=== PATIENT | male | born 1935 | race Caucasian/White ===

== ENCOUNTER 2020-01-30 11:25 | Inpatient (IN) | payer MEDICARE, OTHER ==
[~2020-01-30] VITALS: Ht 177.8 cm; Wt 60.1 kg
[2020-01-30 14:20] LABS: Basophils # (auto) 0.1 10 ^3/uL (0-0.2); Basophils % (auto) 0.5 % (0.0-2.0); Eosinophils # (auto) 0 10 ^3/uL (0-0.8); Eosinophils % (auto) 0.2 % (0.0-7.0); Hematocrit 42.3 % (41.0-53.0); Hemoglobin 13.7 g/dL (13.5-17.5); Lymphocytes # (auto) 1.1 10 ^3/uL (0.4-5.4); Lymphocytes % (auto) 8.3 % (10.0-50.0); Mean Corpuscular Hemoglobin 27.9 pg (28.0-32.0); Mean Corpuscular Hgb Conc. 32.4 g/dL (32.0-36.0); Mean Corpuscular Volume 86.1 fL (80.0-100.0); Monocytes # (auto) 0.7 10 ^3/uL (0-1.3); Monocytes % (auto) 5.5 % (0.0-12.0); Neutrophils % (auto) 85.5 % (37.0-80.0); Platelet Count (auto) 191 10^3/uL (140-450); Red Blood Cells 4.91 10^6/uL (4.5-5.90); White Blood Cell 12.9 10^3/uL (4.4-10.8)
[2020-01-30 14:35] LABS: INR 1.06 (0.9-1.15); Partial Thromboplastin Time 28.7 sec (23.64-32.05)
[2020-01-30 14:44] LABS: Albumin 3.5 g/dL (3.4-5.0); Anion Gap 11 (5-15); Blood Urea Nitrogen 16 mg/dL (7-18); Calcium 8.7 mg/dL (8.5-10.1); Carbon Dioxide 23 mmol/L (21-32); Chloride 109 mmol/L (98-107); Glucose 98 mg/dL (74-106); Potassium 3.6 mmol/L (3.5-5.1); Sodium 143 mmol/L (136-145)
[2020-01-30 14:51] LABS: Alanine Aminotransferase 21 U/L (16-61); Alkaline Phosphatase 86 U/L (45-117); Aspartate Aminotransferase 21 U/L (15-37); BUN/Creatinine Ratio 13.2; Bilirubin, Total 0.6 mg/dL (0.2-1.0); GFR African American 73 mL/min; GFR Non-African American 61 mL/min; Total Protein 6.9 g/dL (6.4-8.2)
[2020-01-30] MEDS ORDERED: NITROGLYCERIN 0.4 MG SL TAB SL PRN (15:45)
[2020-01-30] MEDS ORDERED: MORPHINE SULF INJ 2 MG/ML SYRINGE 1ML IV PRN ×2 (15:45)
[2020-01-30] MEDS ORDERED: hydrALAZINE HCL 20 MG/ML VL IV PRN (15:45)
[2020-01-30] MEDS ORDERED: ACETAMINOPHEN 500 MG TAB PO PRN (15:45)
[2020-01-30] MEDS ORDERED: ONDANSETRON HCL 4 MG/2 ML VIAL IV PRN (15:45)
[2020-01-30] MEDS ORDERED: HYDROcodone-ACET 5/325MG TAB PO PRN (15:45)
[2020-01-30 17:19] LABS: Urine WBC None Seen /hpf (0 - 3)
[2020-01-30 17:28] LABS: Urine Bacteria NONE SEEN /hpf (None Seen); Urine Blood Negative /uL (Negative); Urine Specific Gravity 1.015 (1.001-1.035)
[2020-01-30 17:30] VITALS: BP 155/71
[2020-01-30 17:36] VITALS: BP 155/71
[2020-01-30 22:00] VITALS: BP 125/61
[2020-01-31] VITALS (11 sets, daily range): BP systolic 112–154; BP diastolic 58–76
[2020-01-31] MEDS: FAMOTIDINE 20 MG TAB PO SCH (10:00)
[2020-01-31] MEDS ORDERED: CLINDAMYCIN 600MG IV 50 ML IV ONE (10:47)
[2020-01-31] MEDS ORDERED: fentaNYL CITRATE 100 MCG/2 ML VL ONE (10:55)
[2020-01-31] MEDS ORDERED: MIDAZOLAM HCL 1MG/1ML-2 ML VIAL ONE (10:56)
[2020-01-31] MEDS ORDERED: PROPOFOL 10 MG/ML 20 ML IV ONE (10:58)
[2020-01-31] MEDS ORDERED: DexAMETHasone SOD PHOS 10MG/1ML VIAL INJ ONE (10:58)
[2020-01-31] MEDS ORDERED: BUPIVACAINE 0.25% INJ 50ML VIAL ONE (11:17)
[2020-01-31] MEDS ORDERED: TETRACAINE 1% INJ 2 ML VIAL IJ ONE (11:18)
[2020-01-31] MEDS ORDERED: PHENYLEPHRINE HCL 10 MG/ML VL IV ONE (11:18)
[2020-01-31] MEDS ORDERED: MORPHINE SULF(PF) 0.5MG/ML 10ML VIAL ONE (11:19)
[2020-01-31] MEDS ORDERED: NALOXONE HCL 0.4 MG/ML VIAL IV PRN (14:00)
[2020-01-31] MEDS ORDERED: ePHEDrine SULFATE 50 MG/ML AMP IV PRN (14:00)
[2020-01-31] MEDS ORDERED: KETOROLAC TROMETH 15 mg/ml 1ML VL IV PRN (14:00)
[2020-01-31] MEDS ORDERED: LABETALOL HCL 5 MG/ML 4ML SYRINGE IV PRN (14:00)
[2020-01-31] MEDS ORDERED: DexAMETHasone SOD PHOS 10MG/1ML VIAL INJ IV PRN (14:00)
[2020-01-31] MEDS ORDERED: diphenhdrAMINE HCL 50 MG/1 ML VL IV PRN (14:00)
[2020-01-31] MEDS ORDERED: HYDROmorphone HCL 2 MG/ML VL IV PRN ×3 (14:00→16:15)
[2020-01-31] MEDS ORDERED: MORPHINE SULFATE 4 MG/ML SYR/VIAL IV PRN (14:00)
[2020-01-31] MEDS ORDERED: ONDANSETRON HCL 4 MG/2 ML VIAL IV PRN ×2 (14:00)
[2020-01-31] MEDS ORDERED: NALBUPHINE HCL 10 MG/1ml INJECTION SUBCUT ONE (14:00)
[2020-01-31] MEDS ORDERED: MIDAZOLAM HCL 1MG/1ML-2 ML VIAL IV PRN (14:00)
[2020-01-31] MEDS ORDERED: HYDROcodone-ACET 5/325MG TAB PO PRN (16:15)
[2020-01-31] MEDS ORDERED: ACETAMINOPHEN 325 MG TAB PO PRN (16:15)
[2020-01-31] MEDS: CLINDAMYCIN 600MG IV 50 ML IV SCH (21:48)
[2020-02-01] VITALS (17 sets, daily range): BP systolic 107–141; BP diastolic 52–111
[2020-02-01] MEDS: CLINDAMYCIN 600MG IV 50 ML IV SCH ×2 (05:37→13:59)
[2020-02-01 07:29] LABS: BUN/Creatinine Ratio 17.3; Calcium 8.5 mg/dL (8.5-10.1); Potassium 4.7 mmol/L (3.5-5.1)
[2020-02-01 08:46] LABS: Basophils # (auto) 0 10 ^3/uL (0-0.2); Basophils % (auto) 0.1 % (0.0-2.0); Eosinophils # (auto) 0 10 ^3/uL (0-0.8); Hematocrit 38.2 % (41.0-53.0); Hemoglobin 12.4 g/dL (13.5-17.5); Lymphocytes # (auto) 0.5 10 ^3/uL (0.4-5.4); Lymphocytes % (auto) 4.5 % (10.0-50.0); Mean Corpuscular Hemoglobin 27.8 pg (28.0-32.0); Mean Corpuscular Hgb Conc. 32.5 g/dL (32.0-36.0); Mean Corpuscular Volume 85.5 fL (80.0-100.0); Monocytes # (auto) 0.9 10 ^3/uL (0-1.3); Monocytes % (auto) 8.1 % (0.0-12.0); Neutrophils # (auto) 9.7 10 ^3/uL (1.6-8.6); Neutrophils % (auto) 87.3 % (37.0-80.0); Platelet Count (auto) 231 10^3/uL (140-450); Red Blood Cells 4.47 10^6/uL (4.5-5.90); Red Cell Distribution Width 16.2 % (11.8-14.3); White Blood Cell 11.1 10^3/uL (4.4-10.8)
[2020-02-01] MEDS: FAMOTIDINE 20 MG TAB PO SCH (09:06)
== END 2020-02-01 16:28 | disposition home or self-care (01) | DRG 494 ==
LOC: ER 11:25 → EDBD 11:25 → TELE 11:26 → TELE-CENTR 17:39
PROVIDERS: ADMIT Nurse Practitioner Acute Care; ATTEND Internal Medicine
PROC: 0QSJXZZ Reposition Right Fibula, External Approach (ICD-10-PCS; 2020-01-31)
PROC: 0SSF0ZZ Reposition Right Ankle Joint, Open Approach (ICD-10-PCS; 2020-01-31)
PROC: 0QSG04Z Reposition Right Tibia with Internal Fixation Device, Open Approach (ICD-10-PCS; principal; 2020-01-31 11:15)
DX: S82.391A Other fracture of lower end of right tibia, initial encounter for closed fracture (principal); S82.61XA Displaced fracture of lateral malleolus of right fibula, initial encounter for closed fracture; S82.831A Other fracture of upper and lower end of right fibula, initial encounter for closed fracture; D72.829 Elevated white blood cell count, unspecified; I44.0 Atrioventricular block, first degree; I44.7 Left bundle-branch block, unspecified; I12.9 Hypertensive chronic kidney disease with stage 1 through stage 4 chronic kidney disease, or unspecified chronic kidney disease; N18.2 Chronic kidney disease, stage 2 (mild); Z88.0 Allergy status to penicillin; W18.39XA Other fall on same level, initial encounter; Y93.89 Activity, other specified; Y92.89 Other specified places as the place of occurrence of the external cause; Y99.8 Other external cause status
CPT/HCPCS: 36415; 71045; 73590; 73610; 80048; 80053; 81001; 83735; 84484; 85025; 85610; 85730; 86850; 86900; 86901; 93005; 93306; 94762; G0378; J1100; J2250; J2405; J2704; J3490

== ENCOUNTER 2021-02-17 08:35 | Inpatient (IN) | payer MEDICARE, OTHER ==
[~2021-02-17] VITALS: Ht 175.3 cm; Wt 54.6 kg
[2021-02-17] MEDS ORDERED: levoFLOXacin 500MG 100 ML IV ONE (09:30)
[2021-02-17] MEDS ORDERED: SODIUM CHLORIDE 0.9% 1,000 ML IV ONE ×2 (09:30)
[2021-02-17 10:37] LABS: Basophils # (auto) 0 10 ^3/uL (0-0.2); Basophils % (auto) 0.2 % (0.0-2.0); Eosinophils # (auto) 0 10 ^3/uL (0-0.8); Lymphocytes # (auto) 1.1 10 ^3/uL (0.4-5.4); Mean Corpuscular Hemoglobin 28.8 pg (28.0-32.0); Monocytes # (auto) 1.4 10 ^3/uL (0-1.3); Platelet Count (auto) 272 10^3/uL (140-450)
[2021-02-17 10:38] LABS: Hematocrit 52.9 % (41.0-53.0); Hemoglobin 17.4 g/dL (13.5-17.5); Lymphocytes % (auto) 6.4 % (10.0-50.0); Mean Corpuscular Volume 87.5 fL (80.0-100.0); Monocytes % (auto) 7.9 % (0.0-12.0); Neutrophils # (auto) 15.1 10 ^3/uL (1.6-8.6); Neutrophils % (auto) 85.5 % (37.0-80.0); Red Blood Cells 6.04 10^6/uL (4.5-5.90); Red Cell Distribution Width 14.8 % (11.8-14.3); White Blood Cell 17.7 10^3/uL (4.4-10.8)
[2021-02-17 10:53] LABS: Lactic Acid w/Reflex 2.9 mmol/L (0.4-2.0)
[2021-02-17 11:02] LABS: Potassium 3.1 mmol/L (3.5-5.1); Sodium 143 mmol/L (136-145)
[2021-02-17 11:03] LABS: Alanine Aminotransferase 23 U/L (16-61); Albumin 3.6 g/dL (3.4-5.0); Alkaline Phosphatase 94 U/L (45-117); Anion Gap 10 (5-15); Aspartate Aminotransferase 17 U/L (15-37); BUN/Creatinine Ratio 19.5; Bilirubin, Total 2.2 mg/dL (0.2-1.0); Blood Urea Nitrogen 33 mg/dL (7-18); Calcium 8.9 mg/dL (8.5-10.1); Carbon Dioxide 33 mmol/L (21-32); Chloride 100 mmol/L (98-107); GFR African American 50 mL/min; GFR Non-African American 41 mL/min; Glucose 102 mg/dL (74-106); Magnesium 3.2 mg/dL (1.6-2.6)
[2021-02-17 11:34] LABS: Urine Bacteria NONE SEEN /hpf (None Seen); Urine Blood Negative /uL (Negative); Urine Hyaline Cast MANY /lpf (0 - 2); Urine Specific Gravity 1.019 (1.001-1.035); Urine WBC <1 /hpf (0 - 3)
[2021-02-17] MEDS ORDERED: NITROGLYCERIN 0.4 MG SL TAB SL PRN ×3 (12:15→15:00)
[2021-02-17] MEDS ORDERED: MORPHINE SULF INJ 2 MG/ML SYRINGE 1ML IV PRN ×3 (12:15→15:00)
[2021-02-17] MEDS ORDERED: ONDANSETRON HCL 4 MG/2 ML VIAL ONE (13:57)
[2021-02-17] MEDS: ONDANSETRON HCL 4 MG/2 ML VIAL IV PRN ×2 (14:03→21:31)
[2021-02-17] MEDS ORDERED: ALUM & MAG HYDROX-SIMETH LIQ(MAALOX) 30 ML PO PRN (15:00)
[2021-02-17] MEDS ORDERED: HYDROcodone-ACET 5/325MG TAB PO PRN (15:00)
[2021-02-17] MEDS ORDERED: POTASSIUM CHL 20MEQ/100ML 100 ML IV ONE (15:00)
[2021-02-17] MEDS ORDERED: ACETAMINOPHEN 325 MG TAB PO PRN (15:00)
[2021-02-17] MEDS ORDERED: hydrALAZINE HCL 20 MG/ML VL IV PRN (15:00)
[2021-02-17] MEDS ORDERED: ONDANSETRON HCL 4 MG/2 ML VIAL IV PRN (15:00)
[2021-02-17] MEDS ORDERED: ALBUTEROL SULF 2.5 MG/0.5ML(0.5%) NEB SOLN NEB ONE (15:00)
[2021-02-17] MEDS ORDERED: LORazepam 0.5 MG TAB PO PRN (15:00)
[2021-02-17] MEDS ORDERED: IPRATROPIUM BROM 0.5 MG/2.5ML INH SOL NEB ONE (15:00)
[2021-02-17] MEDS ORDERED: ALBUTEROL SULF 2.5 MG/0.5ML(0.5%) NEB SOLN NEB PRN (15:00)
[2021-02-17] MEDS ORDERED: methylPREDNISolone SOD SUCC 125 MG/2 ML VL IV ONE (15:00)
[2021-02-17] MEDS ORDERED: ATORVASTATIN 20 MG TAB PO ONE (15:00)
[2021-02-17] MEDS ORDERED: LACTATED RINGER'S 1,000 ML IV ONE (15:00)
[2021-02-17] MEDS ORDERED: DOCUSATE SOD 100 MG CAP PO PRN (15:00)
[2021-02-17] MEDS ORDERED: POTASSIUM CHL 20 Meq TABLET PO ONE (15:00)
[2021-02-17] MEDS ORDERED: IPRATROPIUM BROM 0.5 MG/2.5ML INH SOL NEB PRN (15:30)
[2021-02-17] MEDS: SOD CHL 0.9%/ KCL 20MEQ 1,000 ML IV SCH (15:53)
[2021-02-17 15:57] LABS: Cholesterol 222 mg/dL (< 200); HDL Cholesterol 41 mg/dL (40-59); LDL Cholesterol 162 mg/dL (< 100); Triglycerides 137 mg/dL (< 150)
[2021-02-17 16:30] VITALS: BP 135/60
[2021-02-17 16:55] LABS: Urine WBC None Seen /hpf (0 - 3)
[2021-02-17 17:17] LABS: Urine Bacteria NONE SEEN /hpf (None Seen); Urine Blood Negative /uL (Negative); Urine Specific Gravity 1.019 (1.001-1.035)
[2021-02-17 17:27] LABS: Alcohol, Urine < 3.0 mg/dL (0-10); Amphetamine Screen, Urine NEGATIVE (NEGATIVE); Barbiturate Scree,Urine NEGATIVE (NEGATIVE); Benzodiazephine Screen, Urine NEGATIVE (NEGATIVE); Cannabinoid Screen, Urine POSITIVE (NEGATIVE); Cocaine Screen, Urine NEGATIVE (NEGATIVE); Opiate Scree,Urine NEGATIVE (NEGATIVE); Phencyclidine Screen, Urine NEGATIVE (NEGATIVE)
[2021-02-17] MEDS ORDERED: IPRATROPIUM BROM 0.5 MG/2.5ML INH SOL NEB SCH (18:00)
[2021-02-17 18:40] VITALS: BP 139/86
[2021-02-17] MEDS: FUROSEMIDE 20 MG/2 ML VIAL IV SCH (18:57)
[2021-02-17] MEDS ORDERED: GABA300C10 PO (19:26)
[2021-02-17] MEDS ORDERED: ACYC1CAP23 PO (19:26)
[2021-02-17] MEDS ORDERED: BENA5TAB5 PO (19:27)
[2021-02-17] MEDS: AZTREONAM 1GM INJ 1 GM in D5W 5% 50 ML IV SCH (21:31)
[2021-02-17] MEDS: methylPREDNISolone SOD SUCC 40 MG/ML VL IV SCH (21:31)
[2021-02-17 21:47] VITALS: BP 120/91
[2021-02-18] MEDS: SOD CHL 0.9%/ KCL 20MEQ 1,000 ML IV SCH ×3 (01:55→13:49)
[2021-02-18] MEDS: ONDANSETRON HCL 4 MG/2 ML VIAL IV PRN ×2 (01:55→07:00)
[2021-02-18 05:00] VITALS: BP 141/96
[2021-02-18] MEDS: AZTREONAM 1GM INJ 1 GM in D5W 5% 50 ML IV SCH (05:10)
[2021-02-18] MEDS: FUROSEMIDE 20 MG/2 ML VIAL IV SCH (05:11)
[2021-02-18] MEDS: methylPREDNISolone SOD SUCC 40 MG/ML VL IV SCH (05:11)
[2021-02-18 06:12] LABS: Basophils # (auto) 0 10 ^3/uL (0-0.2); Basophils % (auto) 0.1 % (0.0-2.0); Eosinophils # (auto) 0 10 ^3/uL (0-0.8); Hematocrit 48.7 % (41.0-53.0); Hemoglobin 16.4 g/dL (13.5-17.5); Lymphocytes # (auto) 0.3 10 ^3/uL (0.4-5.4); Lymphocytes % (auto) 3.6 % (10.0-50.0); Mean Corpuscular Hemoglobin 29.7 pg (28.0-32.0); Mean Corpuscular Hgb Conc. 33.6 g/dL (32.0-36.0); Mean Corpuscular Volume 88.2 fL (80.0-100.0); Monocytes # (auto) 0.4 10 ^3/uL (0-1.3); Monocytes % (auto) 4.5 % (0.0-12.0); Neutrophils # (auto) 8.9 10 ^3/uL (1.6-8.6); Neutrophils % (auto) 91.8 % (37.0-80.0); Platelet Count (auto) 178 10^3/uL (140-450); Red Blood Cells 5.52 10^6/uL (4.5-5.90); Red Cell Distribution Width 14.5 % (11.8-14.3); White Blood Cell 9.7 10^3/uL (4.4-10.8)
[2021-02-18 06:32] LABS: INR 1.17 (0.9-1.15); Partial Thromboplastin Time 26.9 sec (23.0-31.2)
[2021-02-18 06:36] LABS: Potassium 3.6 mmol/L (3.5-5.1)
[2021-02-18 06:48] LABS: Albumin 3.3 g/dL (3.4-5.0); BUN/Creatinine Ratio 21.6; Bilirubin, Total 1.7 mg/dL (0.2-1.0); Calcium 8.2 mg/dL (8.5-10.1); Magnesium 2.8 mg/dL (1.6-2.6); Phosphorus 1.7 mg/dL (2.5-4.90); Total Protein 6.3 g/dL (6.4-8.2)
[2021-02-18 09:00] VITALS: BP 108/78
[2021-02-18] MEDS ORDERED: AZITHROMYCIN 500MG/ 250ML 250 ML IV SCH (10:00)
[2021-02-18] MEDS ORDERED: ENOXAPARIN SOD 40 MG/0.4 ML SYRINGE SC SCH (10:00)
[2021-02-18] MEDS ORDERED: ASPirin 81 mg TAB PO SCH (10:00)
[2021-02-18 13:00] VITALS: BP 130/75
[2021-02-18] MEDS ORDERED: PANTOPRAZOLE 40 MG/10 ML VIAL INJ IV ONE (13:00)
[2021-02-18] MEDS ORDERED: SODIUM PHOSPHATES 24 MEQ in SODIUM CHL 0.9% 100 ML IV ONE (13:15)
[2021-02-18 17:00] VITALS: BP 144/76
[2021-02-18] MEDS: ATORVASTATIN 20 MG TAB PO SCH (21:20)
[2021-02-18] MEDS: PANTOPRAZOLE 40 MG TAB PO SCH (21:20)
[2021-02-18 21:42] VITALS: BP 134/72
[2021-02-18] MEDS ORDERED: PANTOPRAZOLE 40 MG/10 ML VIAL INJ IV SCH (22:00)
[2021-02-19 04:25] VITALS: BP 113/53
[2021-02-19 05:33] LABS: Basophils # (auto) 0 10 ^3/uL (0-0.2); Basophils % (auto) 0.1 % (0.0-2.0); Eosinophils # (auto) 0 10 ^3/uL (0-0.8); Eosinophils % (auto) 0.1 % (0.0-7.0); Hematocrit 42.5 % (41.0-53.0); Lymphocytes % (auto) 6.1 % (10.0-50.0); Mean Corpuscular Hemoglobin 29.5 pg (28.0-32.0); Mean Corpuscular Volume 89.2 fL (80.0-100.0); Monocytes # (auto) 1.1 10 ^3/uL (0-1.3); Monocytes % (auto) 6.5 % (0.0-12.0); Neutrophils # (auto) 14.6 10 ^3/uL (1.6-8.6); Neutrophils % (auto) 87.2 % (37.0-80.0); Platelet Count (auto) 198 10^3/uL (140-450); Red Blood Cells 4.76 10^6/uL (4.5-5.90); Red Cell Distribution Width 14.9 % (11.8-14.3); White Blood Cell 16.7 10^3/uL (4.4-10.8)
[2021-02-19 05:52] LABS: Albumin 2.7 g/dL (3.4-5.0); Calcium 7.9 mg/dL (8.5-10.1); Potassium 4.6 mmol/L (3.5-5.1)
[2021-02-19 05:55] LABS: BUN/Creatinine Ratio 24.4; Bilirubin, Total 1.1 mg/dL (0.2-1.0); Total Protein 5.5 g/dL (6.4-8.2)
[2021-02-19] MEDS: SOD CHL 0.9%/ KCL 20MEQ 1,000 ML IV SCH (07:19)
[2021-02-19 07:56] VITALS: BP 147/74
[2021-02-19] MEDS ORDERED: ENOXAPARIN SOD 30 MG/0.3 ML SYRINGE SC SCH (10:00)
[2021-02-19] MEDS: ENOXAPARIN SOD 40 MG/0.4 ML SYRINGE SC SCH (10:00)
[2021-02-19] MEDS: PANTOPRAZOLE 40 MG TAB PO SCH ×2 (10:04→22:47)
[2021-02-19 12:11] VITALS: BP 112/53
[2021-02-19] MEDS: SUCRALFATE 1 GM/10 ML ORAL SUSP PO SCH ×3 (14:25→17:35)
[2021-02-19] MEDS: SODIUM CHLORIDE 0.9% 1,000 ML IV SCH (14:51)
[2021-02-19 16:38] VITALS: BP 120/64
[2021-02-19 21:35] VITALS: BP 132/69
[2021-02-19] MEDS: ATORVASTATIN 20 MG TAB PO SCH (22:47)
[2021-02-20 04:44] VITALS: BP 127/66
[2021-02-20 06:13] LABS: Basophils # (auto) 0 10 ^3/uL (0-0.2); Eosinophils # (auto) 0 10 ^3/uL (0-0.8); Eosinophils % (auto) 0.3 % (0.0-7.0); Hematocrit 44.6 % (41.0-53.0); Hemoglobin 14.6 g/dL (13.5-17.5); Lymphocytes # (auto) 1.6 10 ^3/uL (0.4-5.4); Lymphocytes % (auto) 13.8 % (10.0-50.0); Mean Corpuscular Hemoglobin 29.4 pg (28.0-32.0); Mean Corpuscular Hgb Conc. 32.7 g/dL (32.0-36.0); Mean Corpuscular Volume 90.1 fL (80.0-100.0); Monocytes # (auto) 0.7 10 ^3/uL (0-1.3); Neutrophils # (auto) 9.1 10 ^3/uL (1.6-8.6); Neutrophils % (auto) 79.9 % (37.0-80.0); Platelet Count (auto) 192 10^3/uL (140-450); Red Blood Cells 4.95 10^6/uL (4.5-5.90); Red Cell Distribution Width 15.7 % (11.8-14.3); White Blood Cell 11.4 10^3/uL (4.4-10.8)
[2021-02-20] MEDS: SUCRALFATE 1 GM/10 ML ORAL SUSP PO SCH ×4 (06:19→21:27)
[2021-02-20 06:29] LABS: INR 1.08 (0.9-1.15)
[2021-02-20 06:46] LABS: Albumin 2.9 g/dL (3.4-5.0); Calcium 8.1 mg/dL (8.5-10.1); Magnesium 2.9 mg/dL (1.6-2.6); Potassium 4.3 mmol/L (3.5-5.1)
[2021-02-20 06:50] LABS: BUN/Creatinine Ratio 26.4; Bilirubin, Total 1.5 mg/dL (0.2-1.0); Phosphorus 2.5 mg/dL (2.5-4.90); Total Protein 5.6 g/dL (6.4-8.2)
[2021-02-20 08:43] VITALS: BP 150/73
[2021-02-20] MEDS: SODIUM CHLORIDE 0.9% 1,000 ML IV SCH (09:35)
[2021-02-20] MEDS: ENOXAPARIN SOD 40 MG/0.4 ML SYRINGE SC SCH (10:00)
[2021-02-20] MEDS: PANTOPRAZOLE 40 MG TAB PO SCH ×2 (10:00→21:27)
[2021-02-20] MEDS ORDERED: fentaNYL CITRATE 100 MCG/2 ML VL ONE (10:15)
[2021-02-20] MEDS ORDERED: MIDAZOLAM HCL 1MG/1ML-2 ML VIAL ONE (10:15)
[2021-02-20] MEDS ORDERED: PROPOFOL 10 MG/ML 20 ML IV ONE (10:27)
[2021-02-20] MEDS ORDERED: ONDANSETRON HCL 4 MG/2 ML VIAL IV PRN (11:00)
[2021-02-20 13:17] VITALS: BP 135/64
[2021-02-20 16:28] VITALS: BP_SYST 135; BP_SYST 141; BP_DIAS 64; BP_DIAS 65
[2021-02-20 21:21] VITALS: BP 132/65
[2021-02-20] MEDS: ATORVASTATIN 20 MG TAB PO SCH (21:27)
[2021-02-21 04:55] VITALS: BP 126/89
[2021-02-21 05:59] LABS: Basophils # (auto) 0 10 ^3/uL (0-0.2); Basophils % (auto) 0.1 % (0.0-2.0); Eosinophils # (auto) 0.1 10 ^3/uL (0-0.8); Eosinophils % (auto) 0.7 % (0.0-7.0); Hematocrit 39.1 % (41.0-53.0); Lymphocytes # (auto) 1.5 10 ^3/uL (0.4-5.4); Lymphocytes % (auto) 17.7 % (10.0-50.0); Mean Corpuscular Hemoglobin 29.7 pg (28.0-32.0); Mean Corpuscular Hgb Conc. 33.4 g/dL (32.0-36.0); Mean Corpuscular Volume 88.9 fL (80.0-100.0); Monocytes # (auto) 0.5 10 ^3/uL (0-1.3); Monocytes % (auto) 5.8 % (0.0-12.0); Neutrophils # (auto) 6.6 10 ^3/uL (1.6-8.6); Neutrophils % (auto) 75.7 % (37.0-80.0); Platelet Count (auto) 173 10^3/uL (140-450); Red Blood Cells 4.39 10^6/uL (4.5-5.90); White Blood Cell 8.7 10^3/uL (4.4-10.8)
[2021-02-21] MEDS: SUCRALFATE 1 GM/10 ML ORAL SUSP PO SCH ×2 (06:01→11:22)
[2021-02-21] MEDS: SODIUM CHLORIDE 0.9% 1,000 ML IV SCH (06:01)
[2021-02-21 06:12] LABS: Potassium 3.9 mmol/L (3.5-5.1)
[2021-02-21 06:16] LABS: Albumin 2.5 g/dL (3.4-5.0); BUN/Creatinine Ratio 27.9; Bilirubin, Total 1.7 mg/dL (0.2-1.0); Calcium 7.6 mg/dL (8.5-10.1); Magnesium 2.6 mg/dL (1.6-2.6); Total Protein 4.7 g/dL (6.4-8.2)
[2021-02-21 09:00] VITALS: BP 160/70
[2021-02-21] MEDS: PANTOPRAZOLE 40 MG TAB PO SCH (09:33)
[2021-02-21] MEDS: ENOXAPARIN SOD 40 MG/0.4 ML SYRINGE SC SCH (09:33)
[2021-02-21 13:00] VITALS: BP 146/72
[2021-02-21] MEDS ORDERED: PANT40TA2 PO (13:30)
[2021-02-21] MEDS ORDERED: SUCR1TAB22 PO (13:30)
[2021-02-21] MEDS ORDERED: ATOR20TA PO (13:35)
[2021-02-21 15:03] VITALS: BP 146/72
[2021-02-21 17:00] VITALS: BP 131/86
== END 2021-02-21 16:36 | disposition home or self-care (01) | DRG 383 ==
LOC: EDBD 08:35 → ER 08:35 → TELE 12:02 → TELE-WESTW 18:14
PROVIDERS: ADMIT Hospitalist; ATTEND Internal Medicine
PROC: 0DB58ZX Excision of Esophagus, Via Natural or Artificial Opening Endoscopic, Diagnostic (ICD-10-PCS; 2021-02-20)
PROC: 0DB98ZX Excision of Duodenum, Via Natural or Artificial Opening Endoscopic, Diagnostic (ICD-10-PCS; principal; 2021-02-20 10:12)
DX: K26.9 Duodenal ulcer, unspecified as acute or chronic, without hemorrhage or perforation (principal); J18.9 Pneumonia, unspecified organism; N17.0 Acute kidney failure with tubular necrosis; J96.21 Acute and chronic respiratory failure with hypoxia; J44.1 Chronic obstructive pulmonary disease with (acute) exacerbation; R65.10 Systemic inflammatory response syndrome (SIRS) of non-infectious origin without acute organ dysfunction; I13.0 Hypertensive heart and chronic kidney disease with heart failure and stage 1 through stage 4 chronic kidney disease, or unspecified chronic kidney disease; J44.0 Chronic obstructive pulmonary disease with (acute) lower respiratory infection; I50.32 Chronic diastolic (congestive) heart failure; I95.9 Hypotension, unspecified; K29.80 Duodenitis without bleeding; Z20.822 Contact with and (suspected) exposure to COVID-19; E87.6 Hypokalemia; I44.7 Left bundle-branch block, unspecified; E86.0 Dehydration; J20.9 Acute bronchitis, unspecified; N18.31 Chronic kidney disease, stage 3a; M62.84 Sarcopenia; D75.1 Secondary polycythemia; K21.9 Gastro-esophageal reflux disease without esophagitis; K29.70 Gastritis, unspecified, without bleeding; E78.5 Hyperlipidemia, unspecified; K82.8 Other specified diseases of gallbladder; F12.90 Cannabis use, unspecified, uncomplicated; K21.00 Gastro-esophageal reflux disease with esophagitis, without bleeding; K76.0 Fatty (change of) liver, not elsewhere classified; Z87.891 Personal history of nicotine dependence; Z79.899 Other long term (current) drug therapy; Z88.0 Allergy status to penicillin; Z79.891 Long term (current) use of opiate analgesic; Z79.01 Long term (current) use of anticoagulants
CPT/HCPCS: 36415; 36600; 43239; 70450; 71045; 76705; 78226; 80053; 80061; 80307; 81001; 82306; 82805; 83036; 83605; 83735; 83880; 84100; 84443; 84484; 85025; 85610; 85730; 87040; 87086; 87426; 93005; 93306; 94003; 96361; 96365; C9113; G0378; J1956; J2250; J2405; J2704; J3480; J7060

== ENCOUNTER 2022-04-06 08:29 | Inpatient (IN) | payer MEDICARE, OTHER ==
[~2022-04-06] VITALS: Ht 165.1 cm; Wt 58.7 kg
[~2022-04-06 08:29] MED LIST: ACYC1CAP23 PO; ATOR20TA PO; BENA5TAB9 PO; GABA300C10 PO; PANT40TA2 PO; SUCR1TAB22 PO
[2022-04-06] MEDS ORDERED: SODIUM CHLORIDE 0.9% 1,000 ML IV ONE (11:00)
[2022-04-06 11:50] LABS: Basophils # (auto) 0.1 10 ^3/uL (0-0.2); Basophils % (auto) 0.3 % (0.0-2.0); Eosinophils # (auto) 0 10 ^3/uL (0-0.8); Eosinophils % (auto) 0.1 % (0.0-7.0); Hematocrit 37.2 % (41.0-53.0); Hemoglobin 12.2 g/dL (13.5-17.5); Lymphocytes # (auto) 0.8 10 ^3/uL (0.4-5.4); Lymphocytes % (auto) 4.2 % (10.0-50.0); Mean Corpuscular Hemoglobin 26.9 pg (28.0-32.0); Mean Corpuscular Hgb Conc. 32.9 g/dL (32.0-36.0); Mean Corpuscular Volume 81.8 fL (80.0-100.0); Monocytes # (auto) 0.7 10 ^3/uL (0-1.3); Monocytes % (auto) 4.2 % (0.0-12.0); Neutrophils # (auto) 16.3 10 ^3/uL (1.6-8.6); Neutrophils % (auto) 91.2 % (37.0-80.0); Red Blood Cells 4.55 10^6/uL (4.5-5.90); Red Cell Distribution Width 15.7 % (11.8-14.3); White Blood Cell 17.8 10^3/uL (4.4-10.8)
[2022-04-06 11:56] LABS: INR 1.08 (0.9-1.15); Partial Thromboplastin Time 26.5 sec (23.6-33.0)
[2022-04-06 11:59] LABS: Albumin 3.6 g/dL (3.4-5.0); BUN/Creatinine Ratio 17.1; Calcium 8.9 mg/dL (8.5-10.1); Potassium 4.2 mmol/L (3.5-5.1)
[2022-04-06 12:02] LABS: Bilirubin, Total 0.6 mg/dL (0.2-1.0); Total Protein 6.6 g/dL (6.4-8.2)
[2022-04-06 12:07] LABS: Urine Bacteria NONE SEEN /hpf (None Seen); Urine Blood TRACE /uL (Negative); Urine Specific Gravity 1.014 (1.001-1.035); Urine WBC <1 /hpf (0 - 3)
[2022-04-06] MEDS ORDERED: BACITRACIN TOP OINT 1 UD PKG TOP ONE (13:30)
[2022-04-06] MEDS ORDERED: levoFLOXacin 500MG 100 ML IV ONE (14:15)
[2022-04-06] MEDS ORDERED: hydrALAZINE HCL 20 MG/ML VL IV PRN (15:15)
[2022-04-06] MEDS: MORPHINE SULFATE INJ 2 MG/ml SYRG IV PRN (23:45)
[2022-04-07] VITALS (8 sets, daily range): BP systolic 125–156; BP diastolic 60–70
[2022-04-07 04:39] LABS: Basophils # (auto) 0.1 10 ^3/uL (0-0.2); Basophils % (auto) 0.6 % (0.0-2.0); Eosinophils # (auto) 0.2 10 ^3/uL (0-0.8); Eosinophils % (auto) 1.7 % (0.0-7.0); Hematocrit 37.4 % (41.0-53.0); Hemoglobin 12.6 g/dL (13.5-17.5); Lymphocytes % (auto) 10.7 % (10.0-50.0); Mean Corpuscular Hemoglobin 27.9 pg (28.0-32.0); Mean Corpuscular Hgb Conc. 33.7 g/dL (32.0-36.0); Mean Corpuscular Volume 82.9 fL (80.0-100.0); Monocytes # (auto) 0.7 10 ^3/uL (0-1.3); Monocytes % (auto) 7.8 % (0.0-12.0); Neutrophils # (auto) 7.4 10 ^3/uL (1.6-8.6); Neutrophils % (auto) 79.2 % (37.0-80.0); Red Blood Cells 4.51 10^6/uL (4.5-5.90); Red Cell Distribution Width 16.1 % (11.8-14.3); White Blood Cell 9.3 10^3/uL (4.4-10.8)
[2022-04-07 05:00] LABS: Calcium 8.3 mg/dL (8.5-10.1); Potassium 4.1 mmol/L (3.5-5.1)
[2022-04-07 05:04] LABS: BUN/Creatinine Ratio 13.4; Bilirubin, Total 1.3 mg/dL (0.2-1.0); Total Protein 6.1 g/dL (6.4-8.2)
[2022-04-07] MEDS: ENOXAPARIN SOD 30 MG/0.3 ML SYRINGE SC SCH (09:08)
[2022-04-07] MEDS: levoFLOXacin 250MG 50 ML IV SCH (09:08)
[2022-04-07] MEDS: MORPHINE SULFATE INJ 2 MG/ml SYRG IV PRN (09:10)
[2022-04-08 05:00] VITALS: BP 102/66
[2022-04-08 06:44] LABS: Basophils # (auto) 0 10 ^3/uL (0-0.2); Basophils % (auto) 0.3 % (0.0-2.0); Eosinophils # (auto) 0.1 10 ^3/uL (0-0.8); Hematocrit 36.7 % (41.0-53.0); Lymphocytes # (auto) 0.8 10 ^3/uL (0.4-5.4); Lymphocytes % (auto) 8.6 % (10.0-50.0); Mean Corpuscular Hemoglobin 27.2 pg (28.0-32.0); Mean Corpuscular Hgb Conc. 32.8 g/dL (32.0-36.0); Mean Corpuscular Volume 82.7 fL (80.0-100.0); Monocytes % (auto) 10.2 % (0.0-12.0); Neutrophils # (auto) 7.6 10 ^3/uL (1.6-8.6); Neutrophils % (auto) 79.9 % (37.0-80.0); Red Blood Cells 4.43 10^6/uL (4.5-5.90); Red Cell Distribution Width 15.6 % (11.8-14.3); White Blood Cell 9.5 10^3/uL (4.4-10.8)
[2022-04-08 06:57] LABS: BUN/Creatinine Ratio 15.4; Calcium 8.6 mg/dL (8.5-10.1); Magnesium 2.7 mg/dL (1.6-2.6); Potassium 4.3 mmol/L (3.5-5.1)
[2022-04-08 08:00] VITALS: BP 150/78
[2022-04-08 09:00] VITALS: BP 146/57
[2022-04-08] MEDS: ENOXAPARIN SOD 30 MG/0.3 ML SYRINGE SC SCH (09:16)
[2022-04-08] MEDS: levoFLOXacin 250MG 50 ML IV SCH (09:16)
[2022-04-08] MEDS: MORPHINE SULFATE INJ 2 MG/ml SYRG IV PRN (11:30)
[2022-04-08 13:00] VITALS: BP 116/52
[2022-04-08 17:00] VITALS: BP 155/59
[2022-04-08] MEDS ORDERED: ERGOCALCIFEROL 50,000 UNIT(1.25MG) CAP PO SCH (17:45)
[2022-04-08 22:00] VITALS: BP 112/56
[2022-04-09 05:00] VITALS: BP 122/62
[2022-04-09 05:58] LABS: Basophils # (auto) 0 10 ^3/uL (0-0.2); Basophils % (auto) 0.4 % (0.0-2.0); Eosinophils # (auto) 0.2 10 ^3/uL (0-0.8); Eosinophils % (auto) 2.3 % (0.0-7.0); Hematocrit 34.3 % (41.0-53.0); Hemoglobin 11.3 g/dL (13.5-17.5); Lymphocytes # (auto) 0.8 10 ^3/uL (0.4-5.4); Lymphocytes % (auto) 10.3 % (10.0-50.0); Mean Corpuscular Hemoglobin 27.3 pg (28.0-32.0); Mean Corpuscular Hgb Conc. 32.9 g/dL (32.0-36.0); Mean Corpuscular Volume 82.8 fL (80.0-100.0); Monocytes # (auto) 0.8 10 ^3/uL (0-1.3); Monocytes % (auto) 10.1 % (0.0-12.0); Neutrophils # (auto) 6.3 10 ^3/uL (1.6-8.6); Neutrophils % (auto) 76.9 % (37.0-80.0); Red Blood Cells 4.15 10^6/uL (4.5-5.90); Red Cell Distribution Width 15.8 % (11.8-14.3); White Blood Cell 8.2 10^3/uL (4.4-10.8)
[2022-04-09 06:17] LABS: Potassium 3.9 mmol/L (3.5-5.1)
[2022-04-09 06:18] LABS: BUN/Creatinine Ratio 25.3
[2022-04-09 08:38] VITALS: BP 134/60
[2022-04-09] MEDS: levoFLOXacin 250MG 50 ML IV SCH (09:27)
[2022-04-09] MEDS: ENOXAPARIN SOD 40 MG/0.4 ML SYRINGE SC SCH (09:28)
[2022-04-09] MEDS: MORPHINE SULFATE INJ 2 MG/ml SYRG IV PRN ×2 (10:00→13:48)
[2022-04-09 12:53] VITALS: BP 123/56
[2022-04-09] MEDS ORDERED: POLYETHYLENE GLYCOL 17 GM PWDR PO PRN (14:00)
[2022-04-09 16:37] VITALS: BP 139/66
[2022-04-09 22:00] VITALS: BP 140/75
[2022-04-10 05:00] VITALS: BP 144/64
[2022-04-10 09:07] VITALS: BP 123/69
[2022-04-10] MEDS: ENOXAPARIN SOD 40 MG/0.4 ML SYRINGE SC SCH (09:30)
[2022-04-10] MEDS: levoFLOXacin 250MG 50 ML IV SCH (09:30)
[2022-04-10] MEDS: MORPHINE SULFATE INJ 2 MG/ml SYRG IV PRN (09:53)
[2022-04-10 12:58] VITALS: BP 118/58
[2022-04-10] MEDS ORDERED: LACTULOSE 20Gm/30ML SOLN PO ONE (13:00)
[2022-04-10 16:50] VITALS: BP 127/66
[2022-04-10] MEDS: LACTULOSE 20Gm/30ML SOLN PO SCH (21:08)
[2022-04-10] MEDS: HYDROcodone-ACET 7.5/325MG TAB PO PRN (21:14)
[2022-04-10 21:53] VITALS: BP 129/64
[2022-04-11 04:39] VITALS: BP 116/60
[2022-04-11 08:15] VITALS: BP 128/72
[2022-04-11] MEDS: levoFLOXacin 250MG 50 ML IV SCH (09:13)
[2022-04-11] MEDS: ENOXAPARIN SOD 40 MG/0.4 ML SYRINGE SC SCH (09:13)
[2022-04-11] MEDS: LACTULOSE 20Gm/30ML SOLN PO SCH ×2 (09:13→21:24)
[2022-04-11] MEDS: HYDROcodone-ACET 7.5/325MG TAB PO PRN (10:24)
[2022-04-11 12:28] VITALS: BP 107/63
[2022-04-11 16:41] VITALS: BP 112/60
[2022-04-11] MEDS: DOXYCYCLINE 100 MG TAB/CAP PO SCH (21:19)
[2022-04-11 22:00] VITALS: BP 147/72
[2022-04-12 05:00] VITALS: BP 134/68
[2022-04-12 08:20] VITALS: BP 150/67
[2022-04-12] MEDS: DOXYCYCLINE 100 MG TAB/CAP PO SCH ×2 (10:07→21:47)
[2022-04-12] MEDS: ENOXAPARIN SOD 40 MG/0.4 ML SYRINGE SC SCH (10:07)
[2022-04-12] MEDS: LACTULOSE 20Gm/30ML SOLN PO SCH ×2 (10:07→21:50)
[2022-04-12 12:15] VITALS: BP 133/65
[2022-04-12 16:10] VITALS: BP 139/53
[2022-04-12 20:00] VITALS: BP 139/59
[2022-04-12 22:00] VITALS: BP 144/69
[2022-04-13 05:00] VITALS: BP 140/71
[2022-04-13 06:07] LABS: Basophils # (auto) 0.1 10 ^3/uL (0-0.2); Eosinophils # (auto) 0.1 10 ^3/uL (0-0.8); Neutrophils # (auto) 4.1 10 ^3/uL (1.6-8.6); Red Blood Cells 4.03 10^6/uL (4.5-5.90)
[2022-04-13 06:09] LABS: Basophils % (auto) 1.6 % (0.0-2.0); Eosinophils % (auto) 1.4 % (0.0-7.0); Hematocrit 33.1 % (41.0-53.0); Hemoglobin 10.7 g/dL (13.5-17.5); Lymphocytes % (auto) 17.8 % (10.0-50.0); Mean Corpuscular Hemoglobin 26.5 pg (28.0-32.0); Mean Corpuscular Hgb Conc. 32.2 g/dL (32.0-36.0); Mean Corpuscular Volume 82.3 fL (80.0-100.0); Monocytes # (auto) 0.5 10 ^3/uL (0-1.3); Monocytes % (auto) 7.9 % (0.0-12.0); Neutrophils % (auto) 71.3 % (37.0-80.0); Nucleated Red Blood Cells % 0.1 %; Red Cell Distribution Width 15.6 % (11.8-14.3); White Blood Cell 5.7 10^3/uL (4.4-10.8)
[2022-04-13 09:04] VITALS: BP 135/60
[2022-04-13] MEDS: LACTULOSE 20Gm/30ML SOLN PO SCH (09:17)
[2022-04-13] MEDS: DOXYCYCLINE 100 MG TAB/CAP PO SCH (09:18)
[2022-04-13] MEDS: ENOXAPARIN SOD 40 MG/0.4 ML SYRINGE SC SCH (09:19)
[2022-04-13 12:22] VITALS: BP 108/53
[2022-04-13] MEDS ORDERED: ERGO1CAP23 PO (14:46)
[2022-04-13 16:36] VITALS: BP 145/70
== END 2022-04-13 17:29 | disposition home health service (06) | DRG 536 ==
LOC: ER 08:29 → OVERFLOW 14:44 → WEST WING 23:31
PROVIDERS: ADMIT Registered Nurse; ATTEND Internal Medicine
DX: S32.512A Fracture of superior rim of left pubis, initial encounter for closed fracture (principal); E44.0 Moderate protein-calorie malnutrition; D72.829 Elevated white blood cell count, unspecified; D64.9 Anemia, unspecified; N18.31 Chronic kidney disease, stage 3a; R80.9 Proteinuria, unspecified; I12.9 Hypertensive chronic kidney disease with stage 1 through stage 4 chronic kidney disease, or unspecified chronic kidney disease; R31.9 Hematuria, unspecified; K82.8 Other specified diseases of gallbladder; K57.90 Diverticulosis of intestine, part unspecified, without perforation or abscess without bleeding; Z20.822 Contact with and (suspected) exposure to COVID-19; N40.2 Nodular prostate without lower urinary tract symptoms; K59.00 Constipation, unspecified; E55.9 Vitamin D deficiency, unspecified; Z75.1 Person awaiting admission to adequate facility elsewhere; Z88.0 Allergy status to penicillin; Y93.89 Activity, other specified; V23.4XXA Motorcycle driver injured in collision with car, pick-up truck or van in traffic accident, initial encounter; Y92.89 Other specified places as the place of occurrence of the external cause; Y99.8 Other external cause status; Z68.22 Body mass index [BMI] 22.0-22.9, adult
CPT/HCPCS: 36415; 71045; 72192; 73030; 73502; 73562; 73590; 80048; 80053; 81001; 82306; 83735; 84154; 84443; 84484; 85025; 85610; 85730; 87040; 87086; 93005; 93970; 96361; 96365; 97110; 97116; 97163; 97530; G0378; J1956